=== PATIENT | female | born 1990 | race Two or more races ===

== ENCOUNTER 2018-07-27 18:20 | Emergency (ER) | payer OTHER, SELFPAY ==
[~2018-07-27] VITALS: Ht 154.9 cm; Wt 84.8 kg
[2018-07-27 20:30] VITALS: BP 143/91
[2018-07-27] MEDS ORDERED: silver sulfADIAZINE 1% CREAM 25GM TUBE. TP ONE (21:30)
[2018-07-27] MEDS ORDERED: KETOROLAC 30 MG/ML VIAL. IM ONE (21:30)
[2018-07-27] MEDS ORDERED: CYCLOBENZAPRINE 10 MG TABLET. PO ONE (21:30)
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
[2018-07-27] MEDS ORDERED: IBUP-1060 PO (22:51)
[2018-07-27] MEDS ORDERED: CYCL10TA2 PO (22:51)
[2018-07-27] MEDS ORDERED: SILV20CR14 TP (22:56)
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
== END 2018-07-27 23:07 | disposition home or self-care (01) ==
LOC: ER 18:20
DX: S20.312A Abrasion of left front wall of thorax, initial encounter (principal); M25.512 Pain in left shoulder; V43.52XA Car driver injured in collision with other type car in traffic accident, initial encounter; Y93.89 Activity, other specified; Y92.410 Unspecified street and highway as the place of occurrence of the external cause; Y99.8 Other external cause status
CPT/HCPCS: 71101; 73000; 73030; 96372; 99284; J1885